=== PATIENT | male | born 1985 | race Caucasian/White ===

== ENCOUNTER 2017-07-12 22:34 | Emergency (ER) | payer MEDICAID ==
[~2017-07-12] VITALS: Ht 185.4 cm; Wt 81.6 kg
[2017-07-12 23:21] LABS: Urine Specific Gravity 1.027 (1.001-1.035)
[2017-07-12 23:22] LABS: Urine Blood Negative /uL (Negative)
[2017-07-12 23:59] LABS: Basophils # (auto) 0.1 uL; Basophils % (auto) 0.9 % (0.0-2.0); Eosinophils # (auto) 0.1 uL; Eosinophils % (auto) 0.7 % (0.0-7.0); Hematocrit 30.2 % (41.0-53.0); Hemoglobin 10.8 g/dL (13.5-17.5); Lymphocytes # (auto) 1.5 uL; Lymphocytes % (auto) 13.4 % (10.0-50.0); Mean Corpuscular Hemoglobin 31.4 pg (28.0-32.0); Mean Corpuscular Hgb Conc. 35.6 g/dL (32.0-36.0); Mean Corpuscular Volume 88.1 fL (80.0-100.0); Monocytes # (auto) 0.7 uL; Monocytes % (auto) 6.2 % (0.0-12.0); Neutrophils % (auto) 78.8 % (37.0-80.0); Nucleated Red Blood Cells % 0.2 %; Platelet Count (auto) 224 10^3/uL (140-450); Red Blood Cells 3.43 10^6/uL (4.5-5.90); White Blood Cell 11.5 10^3/uL (4.4-10.8)
[2017-07-13 00:08] LABS: Red Cell Distribution Width 20.5 % (11.8-14.3)
[2017-07-13 00:18] LABS: Urine Bacteria FEW /hpf (None Seen); Urine WBC 2 /hpf (0 - 3)
[2017-07-13 00:19] LABS: Urine Mucus MOD (None Seen)
[2017-07-13 00:23] LABS: Albumin 3.7 g/dL (3.4-5.0); BUN/Creatinine Ratio 17.2; Calcium 8.5 mg/dL (8.5-10.1); Potassium 3.9 mmol/L (3.5-5.1)
[2017-07-13] MEDS ORDERED: LIDOCAINE 1% HCL (LOCAL ANESTH.) INJ 20ML MDV ID ONE (01:15)
[2017-07-13 01:38] VITALS: BP 124/68
== END 2017-07-13 02:04 | disposition home or self-care (01) ==
LOC: ER 22:36
DX: L02.01 Cutaneous abscess of face (principal); N39.0 Urinary tract infection, site not specified; D64.9 Anemia, unspecified; F17.210 Nicotine dependence, cigarettes, uncomplicated; Z87.11 Personal history of peptic ulcer disease
CPT/HCPCS: 10060; 36415; 80053; 81001; 85025

== ENCOUNTER → 2020-07-14 | Outpatient (CLI) | payer MEDICAID ==
[2020-07-14 10:50] LABS: Basophils # (auto) 0 10 ^3/uL (0-0.2); Basophils % (auto) 0.6 % (0.0-2.0); Eosinophils # (auto) 0.1 10 ^3/uL (0-0.8); Eosinophils % (auto) 1.5 % (0.0-7.0); Hematocrit 25.1 % (41.0-53.0); Hemoglobin 8.8 g/dL (13.5-17.5); Lymphocytes % (auto) 15.7 % (10.0-50.0); Mean Corpuscular Hemoglobin 29.5 pg (28.0-32.0); Monocytes # (auto) 0.3 10 ^3/uL (0-1.3); Monocytes % (auto) 5.4 % (0.0-12.0); Neutrophils # (auto) 4.7 10 ^3/uL (1.6-8.6); Neutrophils % (auto) 76.8 % (37.0-80.0); Nucleated Red Blood Cells % 0.4 %; Platelet Count (auto) 250 10^3/uL (140-450); Red Blood Cells 2.99 10^6/uL (4.5-5.90); White Blood Cell 6.2 10^3/uL (4.4-10.8)
[2020-07-14 11:19] LABS: Albumin 3.4 g/dL (3.4-5.0); Calcium 8.2 mg/dL (8.5-10.1); Potassium 4.6 mmol/L (3.5-5.1)
[2020-07-14 11:23] LABS: BUN/Creatinine Ratio 16.3; CRP High Sensitivity 0.64 mg/dL (< 0.3); Red Cell Distribution Width 22.8 % (11.8-14.3); Total Protein 6.8 g/dL (6.4-8.2)
== END | disposition home or self-care (01) ==
LOC: LAB 09:49
PROVIDERS: ATTEND Internal Medicine
DX: K51.90 Ulcerative colitis, unspecified, without complications (principal)
CPT/HCPCS: 36415; 80053; 80061; 82378; 82784; 83036; 83516; 84443; 85025; 85652; 86141; 86255; 86256

== ENCOUNTER → 2020-08-04 | Outpatient (CLI) | payer MEDICAID ==
[2020-08-04 15:32] LABS: Basophils # (auto) 0.1 10 ^3/uL (0-0.2); Basophils % (auto) 1.3 % (0.0-2.0); Eosinophils # (auto) 0.2 10 ^3/uL (0-0.8); Eosinophils % (auto) 2.1 % (0.0-7.0); Hematocrit 26.5 % (41.0-53.0); Hemoglobin 9.5 g/dL (13.5-17.5); Lymphocytes # (auto) 1.2 10 ^3/uL (0.4-5.4); Lymphocytes % (auto) 16.8 % (10.0-50.0); Mean Corpuscular Hgb Conc. 35.7 g/dL (32.0-36.0); Mean Corpuscular Volume 84.1 fL (80.0-100.0); Monocytes # (auto) 0.4 10 ^3/uL (0-1.3); Monocytes % (auto) 5.2 % (0.0-12.0); Neutrophils # (auto) 5.3 10 ^3/uL (1.6-8.6); Neutrophils % (auto) 74.6 % (37.0-80.0); Nucleated Red Blood Cells % 0.5 %; Platelet Count (auto) 281 10^3/uL (140-450); Red Blood Cells 3.15 10^6/uL (4.5-5.90); White Blood Cell 7.1 10^3/uL (4.4-10.8)
[2020-08-04 15:47] LABS: Red Cell Distribution Width 24.3 % (11.8-14.3)
[2020-08-04 16:02] LABS: Albumin 3.7 g/dL (3.4-5.0); Calcium 8.1 mg/dL (8.5-10.1); Potassium 4.5 mmol/L (3.5-5.1)
[2020-08-04 16:05] LABS: BUN/Creatinine Ratio 22.1; Bilirubin, Total 2.2 mg/dL (0.2-1.0); Total Protein 6.8 g/dL (6.4-8.2)
[2020-08-04 16:12] LABS: Ferritin 140.1 ng/mL (10-322); Folate (Folic Acid) 16.46 ng/mL (5.38-24)
[2020-08-04 17:00] LABS: % Iron Saturation 29.2 % (20-55)
== END | disposition home or self-care (01) ==
LOC: LAB 15:14
PROVIDERS: ATTEND Internal Medicine Gastroenterology
DX: D64.9 Anemia, unspecified (principal); R19.4 Change in bowel habit; R10.9 Unspecified abdominal pain
CPT/HCPCS: 36415; 80053; 82607; 82728; 82746; 83540; 83550; 85025; 86256; 86671; 86677

== ENCOUNTER → 2020-09-13 | Day surgery (SDC) | payer MEDICAID ==
[2020-09-08 14:41] LABS: Basophils # (auto) 0.1 10 ^3/uL (0-0.2); Basophils % (auto) 0.9 % (0.0-2.0); Eosinophils # (auto) 0.3 10 ^3/uL (0-0.8); Eosinophils % (auto) 4.6 % (0.0-7.0); Hematocrit 24.8 % (41.0-53.0); Hemoglobin 8.9 g/dL (13.5-17.5); Lymphocytes # (auto) 1.1 10 ^3/uL (0.4-5.4); Lymphocytes % (auto) 16.6 % (10.0-50.0); Mean Corpuscular Hemoglobin 29.9 pg (28.0-32.0); Mean Corpuscular Hgb Conc. 35.7 g/dL (32.0-36.0); Mean Corpuscular Volume 83.9 fL (80.0-100.0); Monocytes # (auto) 0.4 10 ^3/uL (0-1.3); Monocytes % (auto) 5.8 % (0.0-12.0); Neutrophils # (auto) 4.6 10 ^3/uL (1.6-8.6); Neutrophils % (auto) 72.1 % (37.0-80.0); Nucleated Red Blood Cells % 0.4 %; Platelet Count (auto) 249 10^3/uL (140-450); Red Blood Cells 2.96 10^6/uL (4.5-5.90); White Blood Cell 6.4 10^3/uL (4.4-10.8)
[2020-09-08 14:57] LABS: Urine Bacteria NONE SEEN /hpf (None Seen); Urine Blood Negative /uL (Negative); Urine Specific Gravity 1.013 (1.001-1.035); Urine WBC <1 /hpf (0 - 3)
[2020-09-08 15:08] LABS: Albumin 3.6 g/dL (3.4-5.0); Calcium 8.4 mg/dL (8.5-10.1); Potassium 4.4 mmol/L (3.5-5.1)
[2020-09-08 15:11] LABS: BUN/Creatinine Ratio 19.4; Bilirubin, Total 2.3 mg/dL (0.2-1.0); Total Protein 6.9 g/dL (6.4-8.2)
[2020-09-08 15:12] LABS: INR 1.02 (0.9-1.15); Partial Thromboplastin Time 26.4 sec (23.0-31.2)
[~2020-09-13] VITALS: Ht 185.4 cm; Wt 90.7 kg
[~2020-09-13] MED LIST: DOCU-94 PO; FERR-7 PO; LEVO500T31 PO; LIDOCAINE 1% (LOCAL ANESTH.) PF 5ml SDV ONE; METR500T PO; MULTCAP45 PO; ONDANSETRON HCL 4 MG/2 ML VIAL IV PRN; PANT40T PO; PROPOFOL 10 MG/ML 20 ML IV ONE
[2020-09-13 14:40] VITALS: BP 109/70
== END | disposition home or self-care (01) ==
LOC: GI 12:08
PROVIDERS: ATTEND Internal Medicine Gastroenterology
DX: K52.89 Other specified noninfective gastroenteritis and colitis (principal); K63.89 Other specified diseases of intestine; K21.00 Gastro-esophageal reflux disease with esophagitis, without bleeding; K31.89 Other diseases of stomach and duodenum; K44.9 Diaphragmatic hernia without obstruction or gangrene; D64.9 Anemia, unspecified; Z20.822 Contact with and (suspected) exposure to COVID-19; Z98.890 Other specified postprocedural states; Z79.899 Other long term (current) drug therapy; Z87.891 Personal history of nicotine dependence
CPT/HCPCS: 36415; 43239; 45380; 80053; 81001; 85025; 85610; 85730; J2704; J7030; U0003

== ENCOUNTER 2020-09-17 13:13 | Inpatient (IN) | payer MEDICAID ==
[~2020-09-17] VITALS: Ht 190.5 cm; Wt 89.6 kg
[~2020-09-17 13:13] MED LIST changes: -DOCU-94 PO; -LEVO500T31 PO; -LIDOCAINE 1% (LOCAL ANESTH.) PF 5ml SDV ONE; -METR500T PO; -ONDANSETRON HCL 4 MG/2 ML VIAL IV PRN; -PANT40T PO; -PROPOFOL 10 MG/ML 20 ML IV ONE
[2020-09-17] MEDS ORDERED: SODIUM CHLORIDE 0.9% 1,000 ML IV ONE ×2 (13:45)
[2020-09-17] MEDS ORDERED: cefTRIAXone 1GM/50ML D5W 50 ML IV ONE (13:45)
[2020-09-17] MEDS ORDERED: ACETAMINOPHEN 325 MG TAB PO ONE ×2 (14:15→19:15)
[2020-09-17 14:36] LABS: Basophils # (auto) 0 10 ^3/uL (0-0.2); Basophils % (auto) 0.3 % (0.0-2.0); Eosinophils # (auto) 0 10 ^3/uL (0-0.8); Eosinophils % (auto) 0.1 % (0.0-7.0); Hematocrit 28.2 % (41.0-53.0); Lymphocytes # (auto) 0.4 10 ^3/uL (0.4-5.4); Lymphocytes % (auto) 5.7 % (10.0-50.0); Mean Corpuscular Hemoglobin 29.9 pg (28.0-32.0); Mean Corpuscular Hgb Conc. 35.4 g/dL (32.0-36.0); Mean Corpuscular Volume 84.5 fL (80.0-100.0); Monocytes # (auto) 0.2 10 ^3/uL (0-1.3); Monocytes % (auto) 3.3 % (0.0-12.0); Neutrophils # (auto) 6.6 10 ^3/uL (1.6-8.6); Neutrophils % (auto) 90.6 % (37.0-80.0); Nucleated Red Blood Cells % 0.8 %; Platelet Count (auto) 231 10^3/uL (140-450); Red Blood Cells 3.34 10^6/uL (4.5-5.90); White Blood Cell 7.3 10^3/uL (4.4-10.8)
[2020-09-17 14:38] LABS: Urine Bacteria NONE SEEN /hpf (None Seen); Urine Blood Negative /uL (Negative); Urine Mucus FEW (None Seen); Urine Specific Gravity 1.019 (1.001-1.035); Urine WBC 1 /hpf (0 - 3)
[2020-09-17 14:44] LABS: Red Cell Distribution Width 24.5 % (11.8-14.3)
[2020-09-17 14:45] LABS: Albumin 3.7 g/dL (3.4-5.0); Anion Gap 8 (5-15); Blood Urea Nitrogen 14 mg/dL (7-18); Calcium 7.9 mg/dL (8.5-10.1); Carbon Dioxide 24 mmol/L (21-32); Chloride 104 mmol/L (98-107); Glucose 100 mg/dL (74-106); Potassium 4.2 mmol/L (3.5-5.1); Sodium 136 mmol/L (136-145)
[2020-09-17 14:46] LABS: Alanine Aminotransferase 33 U/L (16-61); Aspartate Aminotransferase 23 U/L (15-37); BUN/Creatinine Ratio 11.7; GFR African American 90 mL/min; GFR Non-African American 74 mL/min
[2020-09-17 14:50] LABS: Lactic Acid w/Reflex 2.1 mmol/L (0.4-2.0)
[2020-09-17 14:51] LABS: Alkaline Phosphatase 74 U/L (45-117); Bilirubin, Total 3.6 mg/dL (0.2-1.0); Total Protein 7.3 g/dL (6.4-8.2)
[2020-09-17 14:54] LABS: CRP High Sensitivity 0.92 mg/dL (< 0.3)
[2020-09-17] MEDS ORDERED: metroNIDAZOLE 500MG/100ML 100 ML IV ONE (16:30)
[2020-09-17] MEDS ORDERED: PROMETHAZINE HCL 25 MG/ML 1ML IV PRN (20:15)
[2020-09-17] MEDS ORDERED: MORPHINE SULF INJ 2 MG/ML SYRINGE 1ML IV PRN (20:15)
[2020-09-17] MEDS: SODIUM CHLORIDE 0.9% 1,000 ML IV SCH (20:44)
[2020-09-17] MEDS: levoFLOXacin 500MG 100 ML IV SCH (20:49)
[2020-09-17] MEDS: metroNIDAZOLE 500MG/100ML 100 ML IV SCH (21:13)
[2020-09-18 00:06] VITALS: BP 117/66
[2020-09-18] MEDS: ACETAMINOPHEN 325 MG TAB PO PRN ×2 (00:27→20:31)
[2020-09-18] MEDS: HYDROcodone-ACET 5/325MG TAB PO PRN ×2 (01:38→11:27)
[2020-09-18 05:00] VITALS: BP 99/57
[2020-09-18] MEDS: SODIUM CHLORIDE 0.9% 1,000 ML IV SCH (05:41)
[2020-09-18] MEDS: metroNIDAZOLE 500MG/100ML 100 ML IV SCH ×3 (05:41→22:00)
[2020-09-18 09:00] VITALS: BP 100/64
[2020-09-18 13:00] VITALS: BP 102/55
[2020-09-18 15:52] LABS: Basophils # (auto) 0 10 ^3/uL (0-0.2); Eosinophils # (auto) 0 10 ^3/uL (0-0.8); Lymphocytes # (auto) 0.8 10 ^3/uL (0.4-5.4); Monocytes # (auto) 0.3 10 ^3/uL (0-1.3); Neutrophils # (auto) 1.6 10 ^3/uL (1.6-8.6)
[2020-09-18 15:53] LABS: Basophils % (auto) 0.4 % (0.0-2.0); Eosinophils % (auto) 0.2 % (0.0-7.0); Hematocrit 18.1 % (41.0-53.0); Lymphocytes % (auto) 30.5 % (10.0-50.0); Mean Corpuscular Hemoglobin 30.2 pg (28.0-32.0); Mean Corpuscular Volume 83.9 fL (80.0-100.0); Monocytes % (auto) 10.3 % (0.0-12.0); Neutrophils % (auto) 58.6 % (37.0-80.0); Nucleated Red Blood Cells % 0.4 %; Platelet Count (auto) 172 10^3/uL (140-450); Red Blood Cells 2.16 10^6/uL (4.5-5.90); White Blood Cell 2.8 10^3/uL (4.4-10.8)
[2020-09-18 15:56] LABS: Hemoglobin 6.5 g/dL (13.5-17.5); Red Cell Distribution Width 24.4 % (11.8-14.3)
[2020-09-18 16:09] LABS: BUN/Creatinine Ratio 14.1; Calcium 7.5 mg/dL (8.5-10.1); Potassium 3.9 mmol/L (3.5-5.1)
[2020-09-18 16:50] VITALS: BP 113/65
[2020-09-18 18:08] LABS: Basophils # (auto) 0 10 ^3/uL (0-0.2); Basophils % (auto) 0.3 % (0.0-2.0); Eosinophils # (auto) 0 10 ^3/uL (0-0.8); Eosinophils % (auto) 0.2 % (0.0-7.0); Hematocrit 22.7 % (41.0-53.0); Lymphocytes % (auto) 21.3 % (10.0-50.0); Mean Corpuscular Hemoglobin 29.4 pg (28.0-32.0); Mean Corpuscular Hgb Conc. 35.1 g/dL (32.0-36.0); Mean Corpuscular Volume 83.8 fL (80.0-100.0); Monocytes # (auto) 0.4 10 ^3/uL (0-1.3); Neutrophils # (auto) 3.3 10 ^3/uL (1.6-8.6); Neutrophils % (auto) 70.2 % (37.0-80.0); Nucleated Red Blood Cells % 0.4 %; Platelet Count (auto) 244 10^3/uL (140-450); Red Blood Cells 2.71 10^6/uL (4.5-5.90); White Blood Cell 4.6 10^3/uL (4.4-10.8)
[2020-09-18 18:09] LABS: Red Cell Distribution Width 24.2 % (11.8-14.3)
[2020-09-18] MEDS: levoFLOXacin 500MG 100 ML IV SCH (20:30)
[2020-09-18 22:00] VITALS: BP 101/52
[2020-09-19 05:00] VITALS: BP 118/65
[2020-09-19] MEDS: metroNIDAZOLE 500MG/100ML 100 ML IV SCH ×2 (05:03→14:37)
[2020-09-19 05:38] LABS: Basophils # (auto) 0 10 ^3/uL (0-0.2); Hematocrit 19.6 % (41.0-53.0); Hemoglobin 7.1 g/dL (13.5-17.5); Lymphocytes # (auto) 0.8 10 ^3/uL (0.4-5.4); Monocytes # (auto) 0.4 10 ^3/uL (0-1.3)
[2020-09-19 05:40] LABS: Basophils % (auto) 0.4 % (0.0-2.0); Eosinophils # (auto) 0 10 ^3/uL (0-0.8); Lymphocytes % (auto) 22.1 % (10.0-50.0); Mean Corpuscular Hemoglobin 30.3 pg (28.0-32.0); Mean Corpuscular Hgb Conc. 36.3 g/dL (32.0-36.0); Mean Corpuscular Volume 83.6 fL (80.0-100.0); Monocytes % (auto) 11.6 % (0.0-12.0); Neutrophils # (auto) 2.3 10 ^3/uL (1.6-8.6); Neutrophils % (auto) 64.9 % (37.0-80.0); Nucleated Red Blood Cells % 0.2 %; Platelet Count (auto) 194 10^3/uL (140-450); Red Blood Cells 2.34 10^6/uL (4.5-5.90); White Blood Cell 3.6 10^3/uL (4.4-10.8)
[2020-09-19 05:41] LABS: Red Cell Distribution Width 24.3 % (11.8-14.3)
[2020-09-19 05:48] LABS: BUN/Creatinine Ratio 12.2; Calcium 8.1 mg/dL (8.5-10.1); Potassium 3.9 mmol/L (3.5-5.1)
[2020-09-19] MEDS ORDERED: INFLUENZA QUAD 2020-2021 0.5 ML SYRG IM ONE (07:00)
[2020-09-19 08:00] VITALS: BP 105/64
[2020-09-19] MEDS ORDERED: GASTROGRAFIN 120 ML SOL ONE (09:02)
[2020-09-19 12:00] VITALS: BP 108/64
[2020-09-19 12:24] LABS: Basophils # (auto) 0 10 ^3/uL (0-0.2); Basophils % (auto) 0.4 % (0.0-2.0); Eosinophils # (auto) 0 10 ^3/uL (0-0.8); Eosinophils % (auto) 0.8 % (0.0-7.0); Hematocrit 24.7 % (41.0-53.0); Hemoglobin 8.8 g/dL (13.5-17.5); Lymphocytes # (auto) 1.1 10 ^3/uL (0.4-5.4); Lymphocytes % (auto) 21.9 % (10.0-50.0); Mean Corpuscular Hemoglobin 29.9 pg (28.0-32.0); Mean Corpuscular Hgb Conc. 35.6 g/dL (32.0-36.0); Mean Corpuscular Volume 84.1 fL (80.0-100.0); Monocytes # (auto) 0.6 10 ^3/uL (0-1.3); Monocytes % (auto) 11.3 % (0.0-12.0); Neutrophils # (auto) 3.4 10 ^3/uL (1.6-8.6); Neutrophils % (auto) 65.6 % (37.0-80.0); Nucleated Red Blood Cells % 0.4 %; Platelet Count (auto) 243 10^3/uL (140-450); Red Blood Cells 2.93 10^6/uL (4.5-5.90); Red Cell Distribution Width 24.5 % (11.8-14.3); White Blood Cell 5.2 10^3/uL (4.4-10.8)
[2020-09-19 12:33] LABS: % Iron Saturation 28.6 % (20-55)
[2020-09-19 12:51] LABS: Folate (Folic Acid) > 24.00 ng/mL (5.38-24)
[2020-09-19 16:00] VITALS: BP 110/59
[2020-09-19] MEDS ORDERED: LEVO500T31 PO ×2 (16:35)
[2020-09-19] MEDS ORDERED: DOCU-94 PO ×2 (16:35)
[2020-09-19] MEDS ORDERED: FERR-7 PO ×2 (16:35)
[2020-09-19] MEDS ORDERED: PANT40T PO ×2 (16:35)
[2020-09-19] MEDS ORDERED: METR500T PO ×2 (16:35)
== END 2020-09-19 17:29 | disposition home health service (06) | DRG 249 ==
LOC: ER 13:13 → TELE 20:25 → TELE-WESTW 23:34
PROVIDERS: ADMIT Internal Medicine; ATTEND Internal Medicine
DX: K52.9 Noninfective gastroenteritis and colitis, unspecified (principal); R16.2 Hepatomegaly with splenomegaly, not elsewhere classified; Z20.822 Contact with and (suspected) exposure to COVID-19; D50.9 Iron deficiency anemia, unspecified; D72.819 Decreased white blood cell count, unspecified; Z80.0 Family history of malignant neoplasm of digestive organs; Z87.11 Personal history of peptic ulcer disease; Z87.891 Personal history of nicotine dependence
CPT/HCPCS: 36415; 71045; 74176; 74250; 80048; 80053; 81001; 82607; 82728; 82746; 83540; 83550; 83605; 83615; 84484; 85025; 85045; 86038; 86141; 86803; 86880; 87040; 87340; 87426; 93005; 96361; 96365; 96367; G0378; J0696; J1956; J3490

== ENCOUNTER → 2020-09-26 | Outpatient (CLI) | payer MEDICAID ==
[~2020-09-26] MED LIST changes: +DOCU-94 PO; +LEVO500T31 PO; +METR500T PO; +PANT40T PO
[2020-09-26 15:46] LABS: Eosinophils # (auto) 0.1 10 ^3/uL (0-0.8); Lymphocytes # (auto) 1.1 10 ^3/uL (0.4-5.4); Monocytes # (auto) 0.3 10 ^3/uL (0-1.3); Monocytes % (auto) 6.4 % (0.0-12.0); Neutrophils # (auto) 3.6 10 ^3/uL (1.6-8.6); Red Blood Cells 2.47 10^6/uL (4.5-5.90); White Blood Cell 5.2 10^3/uL (4.4-10.8)
[2020-09-26 15:48] LABS: Basophils # (auto) 0 10 ^3/uL (0-0.2); Basophils % (auto) 0.9 % (0.0-2.0); Eosinophils % (auto) 1.6 % (0.0-7.0); Hematocrit 20.6 % (41.0-53.0); Hemoglobin 7.3 g/dL (13.5-17.5); Lymphocytes % (auto) 21.1 % (10.0-50.0); Mean Corpuscular Hemoglobin 29.8 pg (28.0-32.0); Mean Corpuscular Hgb Conc. 35.7 g/dL (32.0-36.0); Mean Corpuscular Volume 83.4 fL (80.0-100.0); Platelet Count (auto) 258 10^3/uL (140-450)
[2020-09-26 15:49] LABS: Red Cell Distribution Width 24.7 % (11.8-14.3)
== END | disposition home or self-care (01) ==
LOC: LAB 15:36
PROVIDERS: ATTEND Nurse Practitioner Family
DX: D69.9 Hemorrhagic condition, unspecified (principal)
CPT/HCPCS: 36415; 85025

== ENCOUNTER → 2020-10-19 | Outpatient (CLI) | payer MEDICAID ==
[~2020-10-19] MED LIST changes: -MULTCAP45 PO
[2020-10-19 16:47] LABS: Basophils # (auto) 0 10 ^3/uL (0-0.2); Basophils % (auto) 0.9 % (0.0-2.0); Eosinophils # (auto) 0.2 10 ^3/uL (0-0.8); Eosinophils % (auto) 3.4 % (0.0-7.0); Hematocrit 24.3 % (41.0-53.0); Hemoglobin 8.7 g/dL (13.5-17.5); Lymphocytes # (auto) 1.2 10 ^3/uL (0.4-5.4); Lymphocytes % (auto) 22.4 % (10.0-50.0); Mean Corpuscular Hemoglobin 30.3 pg (28.0-32.0); Mean Corpuscular Hgb Conc. 35.9 g/dL (32.0-36.0); Mean Corpuscular Volume 84.4 fL (80.0-100.0); Monocytes # (auto) 0.3 10 ^3/uL (0-1.3); Monocytes % (auto) 5.8 % (0.0-12.0); Neutrophils # (auto) 3.7 10 ^3/uL (1.6-8.6); Neutrophils % (auto) 67.5 % (37.0-80.0); Nucleated Red Blood Cells % 0.6 %; Platelet Count (auto) 239 10^3/uL (140-450); Red Blood Cells 2.87 10^6/uL (4.5-5.90); White Blood Cell 5.4 10^3/uL (4.4-10.8)
[2020-10-19 16:50] LABS: Red Cell Distribution Width 25.6 % (11.8-14.3)
[2020-10-19 18:31] LABS: Albumin 3.6 g/dL (3.4-5.0); BUN/Creatinine Ratio 21.5; Calcium 8.2 mg/dL (8.5-10.1); Potassium 3.6 mmol/L (3.5-5.1)
[2020-10-19 18:33] LABS: Bilirubin, Total 2.8 mg/dL (0.2-1.0); Total Protein 6.5 g/dL (6.4-8.2)
== END | disposition home or self-care (01) ==
LOC: LAB 16:31
PROVIDERS: ATTEND Internal Medicine
DX: D64.9 Anemia, unspecified (principal)
CPT/HCPCS: 36415; 80053; 85025

== ENCOUNTER → 2020-11-23 | Outpatient (CLI) | payer MEDICAID ==
[2020-11-23 15:25] LABS: Basophils # (auto) 0.1 10 ^3/uL (0-0.2); Basophils % (auto) 0.9 % (0.0-2.0); Eosinophils # (auto) 0.2 10 ^3/uL (0-0.8); Eosinophils % (auto) 2.2 % (0.0-7.0); Hematocrit 25.5 % (41.0-53.0); Hemoglobin 9.2 g/dL (13.5-17.5); Lymphocytes # (auto) 1.5 10 ^3/uL (0.4-5.4); Lymphocytes % (auto) 20.5 % (10.0-50.0); Mean Corpuscular Hemoglobin 30.5 pg (28.0-32.0); Mean Corpuscular Volume 84.9 fL (80.0-100.0); Monocytes # (auto) 0.4 10 ^3/uL (0-1.3); Monocytes % (auto) 5.3 % (0.0-12.0); Neutrophils # (auto) 5.3 10 ^3/uL (1.6-8.6); Neutrophils % (auto) 71.1 % (37.0-80.0); Nucleated Red Blood Cells % 0.8 %; Platelet Count (auto) 285 10^3/uL (140-450); White Blood Cell 7.5 10^3/uL (4.4-10.8)
[2020-11-23 15:32] LABS: Albumin 3.4 g/dL (3.4-5.0); Calcium 8.3 mg/dL (8.5-10.1); Potassium 4.5 mmol/L (3.5-5.1)
[2020-11-23 15:34] LABS: % Iron Saturation 43.7 % (20-55)
[2020-11-23 15:35] LABS: BUN/Creatinine Ratio 15.6; Total Protein 6.5 g/dL (6.4-8.2)
[2020-11-23 15:37] LABS: Red Cell Distribution Width 24.6 % (11.8-14.3)
== END | disposition home or self-care (01) ==
LOC: LAB 14:54
PROVIDERS: ATTEND Internal Medicine Gastroenterology
DX: K50.90 Crohn's disease, unspecified, without complications (principal); D64.9 Anemia, unspecified
CPT/HCPCS: 36415; 80053; 82607; 83540; 83550; 85025

== ENCOUNTER → 2021-03-22 | Outpatient (CLI) | payer MEDICAID ==
[2021-03-22 15:17] LABS: Basophils # (auto) 0.1 10 ^3/uL (0-0.2); Basophils % (auto) 0.8 % (0.0-2.0); Eosinophils # (auto) 0.1 10 ^3/uL (0-0.8); Eosinophils % (auto) 1.5 % (0.0-7.0); Hematocrit 22.3 % (41.0-53.0); Lymphocytes # (auto) 0.9 10 ^3/uL (0.4-5.4); Lymphocytes % (auto) 14.2 % (10.0-50.0); Mean Corpuscular Hemoglobin 30.4 pg (28.0-32.0); Mean Corpuscular Hgb Conc. 35.8 g/dL (32.0-36.0); Mean Corpuscular Volume 84.8 fL (80.0-100.0); Monocytes # (auto) 0.4 10 ^3/uL (0-1.3); Monocytes % (auto) 5.3 % (0.0-12.0); Neutrophils # (auto) 5.1 10 ^3/uL (1.6-8.6); Neutrophils % (auto) 78.2 % (37.0-80.0); Nucleated Red Blood Cells % 0.9 %; Red Blood Cells 2.63 10^6/uL (4.5-5.90); Red Cell Distribution Width 25.6 % (11.8-14.3); White Blood Cell 6.6 10^3/uL (4.4-10.8)
[2021-03-22 15:55] LABS: BUN/Creatinine Ratio 15.3; Calcium 8.1 mg/dL (8.5-10.1); Potassium 4.2 mmol/L (3.5-5.1)
[2021-03-22 15:58] LABS: Bilirubin, Total 1.9 mg/dL (0.2-1.0); Total Protein 6.1 g/dL (6.4-8.2)
[2021-03-22 16:37] LABS: % Iron Saturation 23.8 % (20-55)
== END | disposition home or self-care (01) ==
LOC: LAB 15:03
PROVIDERS: ATTEND Internal Medicine Gastroenterology
DX: K50.90 Crohn's disease, unspecified, without complications (principal); D64.9 Anemia, unspecified
CPT/HCPCS: 36415; 80053; 82728; 83540; 83550; 85025

== ENCOUNTER → 2021-10-24 | Outpatient (CLI) | payer MEDICAID ==
[2021-10-24 12:30] LABS: Basophils # (auto) 0 10 ^3/uL (0-0.2); Basophils % (auto) 0.7 % (0.0-2.0); Hemoglobin 8.4 g/dL (13.5-17.5); Lymphocytes # (auto) 1.1 10 ^3/uL (0.4-5.4)
[2021-10-24 12:33] LABS: Eosinophils # (auto) 0.1 10 ^3/uL (0-0.8); Eosinophils % (auto) 2.1 % (0.0-7.0); Hematocrit 23.4 % (41.0-53.0); Lymphocytes % (auto) 16.1 % (10.0-50.0); Mean Corpuscular Hemoglobin 30.1 pg (28.0-32.0); Mean Corpuscular Hgb Conc. 35.7 g/dL (32.0-36.0); Mean Corpuscular Volume 84.2 fL (80.0-100.0); Monocytes # (auto) 0.3 10 ^3/uL (0-1.3); Neutrophils # (auto) 5.2 10 ^3/uL (1.6-8.6); Neutrophils % (auto) 76.1 % (37.0-80.0); Nucleated Red Blood Cells % 0.7 %; Red Blood Cells 2.78 10^6/uL (4.5-5.90); White Blood Cell 6.8 10^3/uL (4.4-10.8)
[2021-10-24 12:34] LABS: Red Cell Distribution Width 24.1 % (11.8-14.3)
[2021-10-24 13:22] LABS: BUN/Creatinine Ratio 15.8; Calcium 8.6 mg/dL (8.5-10.1); Potassium 4.2 mmol/L (3.5-5.1)
== END | disposition home or self-care (01) ==
LOC: LAB 12:10
DX: K60.3 Anal fistula (principal)
CPT/HCPCS: 36415; 80048; 85025

== ENCOUNTER 2025-05-16 07:42 | Emergency (ER) | payer MEDICAID ==
[~2025-05-16] VITALS: Ht 185.4 cm; Wt 93.2 kg
--- NOTE | 2025-05-16 07:58 | ED.PDOC ---
GI ASSESSMENT HPI Comments 39 year old male with PMHx gallstones, Crohn's disease presents to the ED with a chief complaint of abdominal pain onset 1 day. Patient states he has been experiencing epigastric pain as well as nausea, vomiting, diarrhea, bright yellow urine for the past day, has been diagnosed with gallstones, has similar episodes frequently. This morning patient woke up and noticed skin and eyes were yellow, came to ED. Currently abdominal pain has improved. Denies fever, chills, melena, blood in stool, hematuria, dysuria, hematemesis,dizziness, headache, chest pain, shortness of breath. No other symptoms or modifying factors present at this time. Chief Complaint: Abdominal Pain Time Seen by MD: 07:50 Primary Care Provider: MAYA Lambert Notes: Medications, Allergies Allergies: Coded Allergies: NO KNOWN ALLERGIES (Unverified , 09/12/20) Home Meds Active Scripts Docusate Sodium (Colace) 100 Mg Cap, 100 MG PO BID PRN, #60 CAP Prov:HORTENCIA CAMPOS MD 09/19/20 Pantoprazole Sodium Sesquihydr (Pantoprazole Sodium) 40 Mg Tab, 40 MG PO DAILY, #30 TAB Prov:HORTENCIA CAMPOS MD 09/19/20 Metronidazole (Flagyl) 500 Mg Tab, 500 MG PO Q8HR, #21 TAB Prov:HORTENCIA CAMPOS MD 09/19/20 Levofloxacin (Levaquin) 500 Mg Tab, 500 MG PO DAILY, #7 TAB Prov:HORTENCIA CAMPOS MD 09/19/20 Ferrous Sulfate (Iron) 325 Mg Tab, 325 MG PO BID, #60 TAB Prov:HORTENCIA CAMPOS MD 09/19/20 Information Source: Patient Mode of Arrival: Ambulatory Timing: Days Duration: Since onset Prehospital treatment: None Quality: Sharp Stool: Loose Severity: Moderate Recent: None Recent Hx of: None Pain Location: Diffuse Modifying Factors: Nothing Associated sign and symptoms: Nausea, Vomiting, Diarrhea, Abdominal Pain Past Medical History PAST MEDICAL HISTORY: Gallstones, PUD Past Medical History (Other): crohn's disease Surgical History: Denies all surgeries Family History Family History: Unknown Social History Smoker: Less Than 1 Pack/Day Alcohol: Heavy Drugs: Marijuana Lives In: Home Constitutional: denies: chills, diaphoresis, fatigue, fever, malaise, sweats, weakness, others EENTM: denies: blurred vision, double vision, ear bleeding, ear discharge, ear drainage, ear pain, ear ringing, eye pain, eye redness, hearing loss, mouth pain, mouth swelling, nasal discharge, nose bleeding, nose congestion, nose pain, photophobia, tearing, throat pain, throat swelling, voice changes, others Respiratory: denies: cough, hemoptysis, orthopnea, SOB at rest, shortness of breath, SOB with excertion, stridor, wheezing, others Cardiovascular: denies: chest pain, dizzy spells, diaphoresis, Dyspnea on exertion, edema, irregular heart beat, left arm pain, lightheadedness, palpitations, PND, syncope, others Gastrointestinal: reports: abdominal pain, diarrhea, nausea, vomiting; denies: abdomen distended, blood streaked bowels, constipated, dysphagia, difficulty swallowing, hematemesis, melena, poor appetite, poor fluid intake, rectal bleeding, rectal pain, others Genitourinary: denies: burning, dysuria, flank pain, frequency, hematuria, incontinence, penile discharge, penile sore, pain, testicle pain, testicle swelling, urgency, others Neurological: denies: dizziness, fainting, headache, left sided numbness, left sided weakness, numbness, paresthesia, pre-existing deficit, right sided numbness, right sided weakness, seizure, speech problems, tingling, tremors, weakness, others Musculoskeletal: denies: back pain, gout, joint pain, joint swelling, muscle pain, muscle stiffness, neck pain, others Integumetry: reports: change in color (jaundice); denies: bruises, change in hair/nails, dryness, laceration, lesions, lumps, rash, wounds, others Allergic/Immunocompromised: denies: Difficulty Healing, Frequent Infections, Hives, Itching, others Hematologic/Lymphatic: denies: anemia, blood clots, easy bleeding, easy bruising, swollen glands, others Endocrine: denies: excessive hunger, excessive sweating, excessive thirst, excessive urination, flushing, intolerance to cold, intolerance to heat, unexplained weight gain, unexplained weight loss, others Psychiatric: denies: anxiety, bipolar disorder, depression, hopeless, panic disorder, schizophrenia, sleepless, suicidal, others All Other Systems: Reviewed and Negative Physical Exam General Appearance: Normal HEENT: Normal ENT Inspection, Pharynx Normal, TMs Normal Neck: Full Range of Motion, Non-Tender, Normal, Normal Inspection Respiratory: Chest Non-Tender, Lungs Clear, No Accessory Muscle Use, No Respiratory Distress, Normal Breath Sounds Cardiovascular: No Edema, No JVD, No Murmur, No Gallop, Normal Peripheral Pulses, Regular Rate/Rhythm Breast Exam: Deferred Gastrointestinal: No Organomegaly, Non Tender, No Pulsatile Mass, Normal Bowel Sounds, Soft Genitalia: Deferred Pelvic: Deferred Rectal: Deferred Extremities: No calf tenderness, Normal capillary refill, Normal inspection, Normal range of motion, Non-tender, No pedal edema Musculoskeletal : Apperance: Normal Neurologic: Alert, 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 Was a procedure done?: No GI differential Dx Differential Diagnosis: Cholecystitis X-Ray, Labs, Meds, VS Vital Signs Date Time Temp Pulse Resp B/P (MAP) Pulse Ox O2 Delivery O2 Flow Rate FiO2 05/16/25 17:35 98.2 78 18 123/82 (96) 99 98.2 05/16/25 12:41 98.4 67 18 125/70 (88) 98 98.4 05/16/25 10:36 98.6 82 18 133/86 (102) 98 98.6 05/16/25 09:15 97.4 76 16 118/76 (90) 100 97.4 05/16/25 09:12 Room Air* 0 21 05/16/25 07:44 97.7 84 18 144/82 98 97.7 Lab Test 05/16/25 18:42 05/16/25 08:05 Range/Units POC Glucose 86 70-106 mg/dl White Blood Count 7.5 4.4-10.8 10^3/uL Red Blood Count 3.10 L 4.5-5.90 10^6/uL Hemoglobin 8.9 L 13.5-17.5 g/dL Hematocrit 25.3 L 41.0-53.0 % Mean Corpuscular Volume 81.6 80.0-100.0 fL Mean Corpuscular Hemoglobin 28.6 28.0-32.0 pg Mean Corpuscular Hemoglobin Concent 35.0 32.0-36.0 g/dL Red Cell Distribution Width 26.2 H 11.8-14.3 % Platelet Count 334 140-450 10^3/uL Mean Platelet Volume 6.9 6.9-10.8 fL Neutrophils (%) (Auto) 74.2 37.0-80.0 % Lymphocytes (%) (Auto) 16.9 10.0-50.0 % Monocytes (%) (Auto) 7.6 0.0-12.0 % Eosinophils (%) (Auto) 1.0 0.0-7.0 % Basophils (%) (Auto) 0.3 0.0-2.0 % Neutrophils # (Auto) 5.6 1.6-8.6 10 ^3/uL Lymphocytes # (Auto) 1.3 0.4-5.4 10 ^3/uL Monocytes # (Auto) 0.6 0-1.3 10 ^3/uL Eosinophils # (Auto) 0.1 0-0.8 10 ^3/uL Basophils # (Auto) 0 0-0.2 10 ^3/uL Nucleated Red Blood Cells 0.5 % Sodium Level 141 136-145 mmol/L Potassium Level 4.2 3.5-5.1 mmol/L Chloride Level 104 98-107 mmol/L Carbon Dioxide Level 26 20-31 mmol/L Anion Gap 11 5-15 Blood Urea Nitrogen 16 9-23 mg/dL Creatinine 1.05 0.700-1.30 mg/dL Glomerular Filtration Rate Calc 94 >90 mL/min BUN/Creatinine Ratio 15.2 10.0-20.0 Serum Glucose 92 74-106 mg/dL Calcium Level 9.3 8.7-10.4 mg/dL Total Bilirubin 18.3 H 0.2-1.0 mg/dL Aspartate Amino Transferase (AST) 141 H 13-40 U/L Alanine Aminotransferase (ALT) 180 H 7-40 U/L Alkaline Phosphatase 189 H 46-116 U/L Total Protein 7.2 5.7-8.2 g/dL Albumin 4.2 3.2-4.8 g/dL Lipase 28 12-53 U/L [facility] [id number] [facility] [id number] Ph: [phone] DIAGNOSTIC IMAGING Diagnostic Imaging Report : [id number] Signed PATIENT: BLANCHE LYNNE IIACCT: [id number] UNIT: [id number] : 1985 LOC: ER ROOM / BED: / AGE / SEX: 39 / M ADM STATUS: REG ER SERVICE 0750 ORDERING PHYSICIAN: LUIS FELIPE LAWRENCE MD PROCEDURE(s): GBUS - GALLBLADDER REASON: ruq pain ORDER NUMBER(s): [id number], ACCESSION NUMBER(s): [id number] INDICATION: ruq pain TECHNIQUE: Multiple real-time sonographic images were obtained of the right upper quadrant. COMPARISON: None FINDINGS: The liver demonstrates homogenous echotexture without focal mass lesions. The liver measures 19 cm. There is no intrahepatic or extrahepatic ductal dilatation. The common duct measures 5 mm. Gallstones. The gallbladder wall measures 2 mm and is within normal limits. The right kidney measures 11.6 cm. The right kidney is normal in contour, size, and shape. The echogenicity is normal. There is no hydronephrosis. The pancreas is not well visualized due to overlying bowel gas. IMPRESSION: Cholelithiasis without sonographic evidence of acute cholecystitis. Hepatic steatosis and hepatomegaly. ATED BY: REGGIE SANTOS MD DICTATED DATE/TIME: 05/16/25847 SIGNED BY: REGGIE SANTOS MD SIGNED DATE/TIME: 05/16/25847 CC: Time of 1ST Reevaluation: 08:20 Reevaluation 1ST: Unchanged Patient Education/Counseling: Diagnosis, Treatment, Prognosis Family Education/Counseling: No Family Present SEPSIS Sepsis Screen Date sepsis recognized/suspect: May 16, 2025 Time Sepsis recognized/suspect: 0744 Recent Procedure: No On Antibiotic Therapy: No Respiratory Rate >20: No Heart Rate >90: No Temp<36 C (96.8 F) or >38.3 C: No SBP <90 or MAP <65 mmHG: No New Acute Mental Status Change: No Is the patient on CPAP, BIPAP,: No Physician Orders Gallbladder (05/16/25 07:50) Imaging Transfer Request (05/16/25 11:26) Vital Signs Date Time Temp Pulse Resp B/P (MAP) Pulse Ox O2 Delivery O2 Flow Rate FiO2 05/16/25 17:35 98.2 78 18 123/82 (96) 99 98.2 05/16/25 12:41 98.4 67 18 125/70 (88) 98 98.4 05/16/25 10:36 98.6 82 18 133/86 (102) 98 98.6 05/16/25 09:15 97.4 76 16 118/76 (90) 100 97.4 05/16/25 09:12 Room Air* 0 21 05/16/25 07:44 97.7 84 18 144/82 98 97.7 Laboratory Tests Test 05/16/25 08:05 White Blood Count 7.5 10^3/uL (4.4-10.8) Departure 1 Departure Time of Disposition: 12:46 (Patient presented with abdominal pain that was concerning for possible appendicits, gastritis, cholecystitis, colitis, gastroenteritis, sbo, or orther possible surgical emergency. Data: 1. I ordered and reviewed the result of at least 3 labs including a CBC, BMP, and Urinalysis. 2. I independently interpreted the following tests: CT Abdomen and Pelvis is concerning for choledocholithiasis .Risk:This patient has a high risk of morbidity due to further diagnostic testing or treatment and may suffer from an acute abdominal process disorder. Workup reveals concern for choledocholithiasis and patient will be transferred to [facility] for an ERCP evaluation.) Impression: Primary Impression: Intractable abdominal pain Additional Impression: Liver failure Disposition: 02 SHORT TERM HOSPITAL Condition: Critical Critical Care Note Critical Care Time?: Yes Critical care comment: Intractable abdominal pain concerning for liver failure Authorized and Performed by: Luis Felipe Lawrence MD Total critical care time: Approximately 127 minutes Due to a high probability of clinically significant, life threatening deterioration, the patient required my highest level of preparedness to intervene emergently and I personally spent this critical care time directly and personally managing the patient. This critical care time included obtaining a history; examining the patient; pulse oximetry; ordering and review of studies; arranging urgent treatment with development of a management plan; evaluation of patient's response to treatment; frequent reassessment; and, discussions with other providers. This critical care time was performed to assess and manage the high probability of imminent, life-threatening deterioration that could result in multi-organ failure. It was exclusive of separately billable procedures and treating other patients and teaching time. Please see my other sections and the rest of the note for further information on patient assessment and treatment. Stability Stability form required: No Heart Score Heart Score: Heart Score Response (Comments) Value History N/A 0 EKG N/A 0 Age N/A 0 Risk Factors N/A 0 Troponin N/A 0 Total 0 I personally scribed for LUIS FELIPE LAWRENCE MD ([email or web address]) on 05/16/25 at 07:58. Electronically submitted by Marlee Alfaro ([email or web address]). I personally scribed for LUIS FELIPE LAWRENCE MD ([email or web address]) on 05/16/25 at 09:49. Electronically submitted by Marele Alfaro ([email or web address]). LUIS FELIPE LAWRENCE MD May 16, 2025 07:58
[2025-05-16 08:47] LABS: Hematocrit 25.3 % (41.0-53.0); Hemoglobin 8.9 g/dL (13.5-17.5); Mean Corpuscular Hemoglobin 28.6 pg (28.0-32.0); Mean Corpuscular Volume 81.6 fL (80.0-100.0); Nucleated Red Blood Cells % 0.5 %
--- NOTE | 2025-05-16 08:51 | DVH ---
INDICATION: ruq pain TECHNIQUE: Multiple real-time sonographic images were obtained of the right upper quadrant. COMPARISON: None FINDINGS: The liver demonstrates homogenous echotexture without focal mass lesions. The liver measures 19 cm. There is no intrahepatic or extrahepatic ductal dilatation. The common duct measures 5 mm. Gallstones. The gallbladder wall measures 2 mm and is within normal limits. The right kidney measures 11.6 cm. The right kidney is normal in contour, size, and shape. The echogenicity is normal. There is no hydronephrosis. The pancreas is not well visualized due to overlying bowel gas. IMPRESSION: Cholelithiasis without sonographic evidence of acute cholecystitis. Hepatic steatosis and hepatomegaly.
[2025-05-16 09:03] LABS: Albumin 4.2 g/dL (3.2-4.8)
[2025-05-16 09:07] LABS: Bilirubin, Total 18.3 mg/dL (0.2-1.0)
[2025-05-16 09:20] LABS: BUN/Creatinine Ratio 15.2 (10.0-20.0)
[2025-05-16 09:21] LABS: Anion Gap 11 (5-15)
[2025-05-16 09:22] LABS: Alanine Aminotransferase 180 U/L (7-40); Alkaline Phosphatase 189 U/L (46-116); Blood Urea Nitrogen 16 mg/dL (9-23); Calcium 9.3 mg/dL (8.7-10.4); Carbon Dioxide 26 mmol/L (20-31); Chloride 104 mmol/L (98-107); Glucose 92 mg/dL (74-106); Potassium 4.2 mmol/L (3.5-5.1); Sodium 141 mmol/L (136-145); Total Protein 7.2 g/dL (5.7-8.2)
[2025-05-16 09:46] LABS: Lipase 28 U/L (12-53)
[2025-05-16] MEDS: SODIUM CHLORIDE 0.9% 1,000 ML IV ONE (09:51)
[2025-05-16] MEDS: ONDANSETRON HCL 4 MG/2 ML VIAL IV ONE (10:00)
[2025-05-16] MEDS: FAMOTIDINE (10MG/ML) 2ML VL IV ONE (10:00)
[2025-05-16 17:35] VITALS: BP 123/82; PULSE 78; RESP 18; TEMP 98.2; O2SAT 99
== END 2025-05-16 10:20 | disposition short-term general hospital (02) ==
LOC: ER 07:42
DX: K72.90 Hepatic failure, unspecified without coma (principal); R10.13 Epigastric pain; R11.2 Nausea with vomiting, unspecified; R19.7 Diarrhea, unspecified; F12.90 Cannabis use, unspecified, uncomplicated; F17.210 Nicotine dependence, cigarettes, uncomplicated; Z79.899 Other long term (current) drug therapy; Z87.11 Personal history of peptic ulcer disease
CPT/HCPCS: 36415; 76705; 80053; 82947; 83690; 85025; 96361; 96374; 96375; 99291; 99292; J2405; J3490; J7030; 82962